=== PATIENT | female | born 1960 | race Asian ===

== ENCOUNTER 2018-06-06 12:07 | Inpatient (IN) ==
--- NOTE | 2018-06-06 13:12 | ED ---
HPI General Chief Complaint: Psychiatric Symptoms Stated Complaint: Psych Eval/NSBPD Time Seen by Provider: 06/06/18 13:11 Source: patient and other (Moscoso act report) Mode of arrival: ambulatory Limitations: no limitations History of Present Illness HPI Narrative: 58-year-old female presents to the emergency department under Moscoso act. According to the Moscoso act report apparently the patient was in an argument with her neighbor over medications and apparently at at a point had stated that she was going to walk to the beach and then jump off a bridge. On my examination the patient states that she does not know anything about jumping off of a bridge, except for in 2007 when she had a plan to attempt suicide by jumping off of a balcony. She denies making this comment. She denies suicidal or homicidal ideations. Reports history of suicidal attempt in 2007 with plan to jump off a balcony and was talked out of it by her friend. Reports history of psychiatric background with bipolar disorder, anxiety, depression. Denies illicit drug use, alcohol use, tobacco use. Denies auditory visual hallucinations. Patient is asking for something for pain. Is complaining of low back pain and says that she has low back pain at home also. Denies any other emergent medical complaints. Denies chest pain, shortness of breath, abdominal pain, change in urine or stool. Says she does feel anxious and is acting for something for her anxiety. Says her symptoms were aggravated today when her next her neighbor was trying to offer her a medication that she did not want to take. No known relieving factors. Symptoms are moderate to severe in severity. Onset sounds like it was today. Duration acute, but possibly could be chronic. History of diabetes mellitus and stroke, per the chart. Primary care provider is Dr. Baer. Allergies as listed on the chart. Has no other medical complaints. No other modifying factors or associated signs and symptoms. Related Data Home Medications Medication Instructions Recorded Confirmed oxcarbazepine 600 mg PO DAILY 06/06/18 06/06/18 quetiapine 120 mg PO HS 06/06/18 06/06/18 Previous Rx's Medication Instructions Recorded diphenhydramine HCl 50 mg PO HS 30 Days #30 cap 06/04/18 lisinopril 20 mg PO DAILY 30 Days #30 tab 06/04/18 Allergies Allergy/AdvReac Type Severity Reaction Status Date / Time divalproex sodium Allergy Rash Verified 05/24/18 16:06 [From Depakote] methylphenidate Allergy Rash Verified 05/24/18 16:06 [From Ritalin] risperidone [From Risperdal] Allergy Rash Verified 05/24/18 16:06 venlafaxine [From Effexor] Allergy Color Verified 06/06/18 12:31 Change of Teeth Review of Systems ROS: all other systems reviewed are negative PMFSH Medical History Medical History Diabetes (Acute) Bipolar disorder (Acute) Hypertension (Acute) Stroke (Acute) Surgical History Surgical History Status post wrist surgery (Acute) Social History Social History Substance History: No History of Abuse Second Hand Smoke Exposure: No Smoking Status: Never smoker How Often Do You Have a Drink Containing Alcohol: Never Recent Travel in [facility] within the Last 8 Weeks: No Recent Out of Country Travel within the Last 8 Weeks: No Immunization History Tetanus Immunization: Unsure Exam Narrative Exam Narrative: GENERAL: Well-nourished, well-developed female patient, in no acute distress SKIN: Warm and dry. HEAD: Atraumatic. Normocephalic. EYES: Pupils equal and round. ENT: Mucosa pink and moist. NECK: Supple. Trachea midline. CARDIOVASCULAR: Regular rate and rhythm. No murmur appreciated. RESPIRATORY: No accessory muscle use. Clear to auscultation. Breath sounds equal bilaterally. GASTROINTESTINAL: Abdomen soft, non-tender, nondistended. Hepatic and splenic margins not palpable. Bowel sounds are active 4 quadrants. MUSCULOSKELETAL: No obvious deformities. No clubbing. No cyanosis. No edema. NEUROLOGICAL: Awake and alert. Oriented 3. No obvious cranial nerve deficits. Motor grossly within normal limits. Normal speech. Moves all extremities. 5/5 strength to all extremities. PSYCHIATRIC: No delusional thought processes. No hallucinations. Course Initial Documented Vital Signs Temperature 98.5 F 06/06/18 12:34 Pulse Rate 103 H 06/06/18 12:34 Respiratory Rate 20 06/06/18 12:34 Blood Pressure 182/120 H 06/06/18 12:34 Pulse Oximetry 98 06/06/18 12:34 Last Documented Vital Signs Temperature 98.1 F 06/11/18 06:00 Pulse Rate 84 06/11/18 06:00 Respiratory Rate 16 06/11/18 06:00 Blood Pressure 129/63 06/11/18 06:00 Pulse Oximetry 96 06/11/18 06:00 Medical Decision Making MDM Narrative Medical decision making narrative: Patient presents under a Moscoso act. Physical examination and vital signs are essentially unremarkable. Patient has no medical complaints to report. Psych screen has been ordered. If the laboratory results are unremarkable, the patient will be medically cleared for psychiatric evaluation and disposition. Medical Screen Exam Complete: Yes Emergency Medical Condition: Yes Differential Diagnosis Differential Diagnosis: Adjustment disorder, mood disorder, suicidal threat, medical clearance for psychiatric evaluation Lab Data Result diagrams: 06/06/18 13:40 06/06/18 13:40 Lab Results 06/06/18 06/06/18 06/06/18 Range/Units 12:55 12:55 13:40 WBC 5.5 (4.0-11.0) th/mm3 RBC 4.48 (4.00-5.30) mil/mm3 Hgb 15.3 (11.6-15.3) gm/dL Hct 43.9 (35.0-46.0) % MCV 98.0 (80.0-100.0) fL MCH 34.1 H (27.0-34.0) pg MCHC 34.8 (32.0-36.0) % RDW 13.2 (11.6-17.2) % Plt Count 263 (150-450) th/mm3 MPV 6.9 L (7.0-11.0) fL Neut % (Auto) 74.1 H (16.0-70.0) % Lymph % (Auto) 17.4 (9.0-44.0) % Giles % (Auto) 6.6 (0.0-8.0) % Eos % (Auto) 0.9 (0.0-4.0) % Baso % (Auto) 1.0 (0.0-2.0) % Neut # (Auto) 4.0 (1.8-7.7) th/mm3 Lymph # (Auto) 0.9 L (1.0-4.8) th/mm3 Giles # (Auto) 0.4 (0.0-0.9) th/mm3 Eos # (Auto) 0.1 (0.0-0.4) th/mm3 Baso # (Auto) 0.1 (0.0-0.2) th/mm3 WBC Differential . Differential Comment Auto diff final Sodium (136-145) meq/L Potassium (3.5-5.1) meq/L Chloride (98-107) meq/L Carbon Dioxide (21.0-32.0) meq/L Anion Gap (5-15) meq/L BUN (7-18) mg/dL Creatinine (0.50-1.00) mg/dL Estimated GFR (>89) mL/min Random Glucose (74-106) mg/dL Hemoglobin A1c (4.3-6.0) % Calcium (8.5-10.1) mg/dL Magnesium (1.5-2.5) mg/dL Total Bilirubin (0.2-1.0) mg/dL AST (15-37) U/L ALT (10-53) U/L Alkaline Phosphatase (45-117) U/L Total Protein (6.4-8.2) g/dL Albumin (3.4-5.0) g/dL Triglycerides (42-150) mg/dL Cholesterol (120-200) mg/dL LDL Cholesterol, Calc (0-99) mg/dL HDL Cholesterol (40.0-60.0) mg/dL Cholesterol/HDL Ratio Ratio TSH (0.358-3.740) uIU/mL Urine Color Yellow (Yellw/Straw) Urine Clarity Clear (Clear) Urine pH 5.0 (5.0-8.5) Ur Specific [place] 1.020 (1.002-1.035) Urine Protein Negative (Neg-Trace) mg/dL Urine Glucose (UA) Negative (Negative) mg/dL Urine Ketones Negative (Negative) mg/dL Urine Occult Blood Negative (Negative) Urine Nitrate Negative (Negative) Urine Bilirubin Negative (Negative) Urine Urobilinogen Less than 2 (Less than 2) mg/dL Ur Leukocyte Esterase Trace H (Negative) Urine RBC Less than 1 (0-3) /hpf Urine WBC 3 (0-5) /hpf Urine Mucus Few H (Occasional) /lpf Micro UA Comment Culture not ind Ur Microscopic Review Not Reportable Urine Culture Comments Culture not ind Salicylates (2.8-20.0) mg/dL Urine Opiates Screen Neg (Neg) Acetaminophen (10.0-30.0) mcg/mL Ur Barbiturates Screen Neg (Neg) Ur Amphetamines Screen Neg (Neg) U Benzodiazepines Scrn Neg (Neg) Urine Cocaine Screen Neg (Neg) U Cannabinoids Screen Neg (Neg) Serum Alcohol (0-5) mg/dL 06/06/18 06/06/18 06/07/18 Range/Units 13:40 13:40 08:10 WBC (4.0-11.0) th/mm3 RBC (4.00-5.30) mil/mm3 Hgb (11.6-15.3) gm/dL Hct (35.0-46.0) % MCV (80.0-100.0) fL MCH (27.0-34.0) pg MCHC (32.0-36.0) % RDW (11.6-17.2) % Plt Count (150-450) th/mm3 MPV (7.0-11.0) fL Neut % (Auto) (16.0-70.0) % Lymph % (Auto) (9.0-44.0) % Giles % (Auto) (0.0-8.0) % Eos % (Auto) (0.0-4.0) % Baso % (Auto) (0.0-2.0) % Neut # (Auto) (1.8-7.7) th/mm3 Lymph # (Auto) (1.0-4.8) th/mm3 Giles # (Auto) (0.0-0.9) th/mm3 Eos # (Auto) (0.0-0.4) th/mm3 Baso # (Auto) (0.0-0.2) th/mm3 WBC Differential Differential Comment Sodium 138 (136-145) meq/L Potassium 4.2 (3.5-5.1) meq/L Chloride 107 (98-107) meq/L Carbon Dioxide 22.2 (21.0-32.0) meq/L Anion Gap 9 (5-15) meq/L BUN 16 (7-18) mg/dL Creatinine 0.67 (0.50-1.00) mg/dL Estimated GFR Greater than 89 (>89) mL/min Random Glucose 96 (74-106) mg/dL Hemoglobin A1c 5.4 (4.3-6.0) % Calcium 9.0 (8.5-10.1) mg/dL Magnesium 2.3 (1.5-2.5) mg/dL Total Bilirubin 0.3 (0.2-1.0) mg/dL AST 41 H (15-37) U/L ALT 56 H (10-53) U/L Alkaline Phosphatase 96 (45-117) U/L Total Protein 7.8 (6.4-8.2) g/dL Albumin 4.5 (3.4-5.0) g/dL Triglycerides (42-150) mg/dL Cholesterol (120-200) mg/dL LDL Cholesterol, Calc (0-99) mg/dL HDL Cholesterol (40.0-60.0) mg/dL Cholesterol/HDL Ratio Ratio TSH 0.511 (0.358-3.740) uIU/mL Urine Color (Yellw/Straw) Urine Clarity (Clear) Urine pH (5.0-8.5) Ur Specific [place] (1.002-1.035) Urine Protein (Neg-Trace) mg/dL Urine Glucose (UA) (Negative) mg/dL Urine Ketones (Negative) mg/dL Urine Occult Blood (Negative) Urine Nitrate (Negative) Urine Bilirubin (Negative) Urine Urobilinogen (Less than 2) mg/dL Ur Leukocyte Esterase (Negative) Urine RBC (0-3) /hpf Urine WBC (0-5) /hpf Urine Mucus (Occasional) /lpf Micro UA Comment Ur Microscopic Review Urine Culture Comments Salicylates Less than 1.7 L (2.8-20.0) mg/dL Urine Opiates Screen (Neg) Acetaminophen Less than 2.0 L (10.0-30.0) mcg/mL Ur Barbiturates Screen (Neg) Ur Amphetamines Screen (Neg) U Benzodiazepines Scrn (Neg) Urine Cocaine Screen (Neg) U Cannabinoids Screen (Neg) Serum Alcohol Less than 3 (0-5) mg/dL 06/07/18 Range/Units 08:10 WBC (4.0-11.0) th/mm3 RBC (4.00-5.30) mil/mm3 Hgb (11.6-15.3) gm/dL Hct (35.0-46.0) % MCV (80.0-100.0) fL MCH (27.0-34.0) pg MCHC (32.0-36.0) % RDW (11.6-17.2) % Plt Count (150-450) th/mm3 MPV (7.0-11.0) fL Neut % (Auto) (16.0-70.0) % Lymph % (Auto) (9.0-44.0) % Giles % (Auto) (0.0-8.0) % Eos % (Auto) (0.0-4.0) % Baso % (Auto) (0.0-2.0) % Neut # (Auto) (1.8-7.7) th/mm3 Lymph # (Auto) (1.0-4.8) th/mm3 Giles # (Auto) (0.0-0.9) th/mm3 Eos # (Auto) (0.0-0.4) th/mm3 Baso # (Auto) (0.0-0.2) th/mm3 WBC Differential Differential Comment Sodium (136-145) meq/L Potassium (3.5-5.1) meq/L Chloride (98-107) meq/L Carbon Dioxide (21.0-32.0) meq/L Anion Gap (5-15) meq/L BUN (7-18) mg/dL Creatinine (0.50-1.00) mg/dL Estimated GFR (>89) mL/min Random Glucose (74-106) mg/dL Hemoglobin A1c (4.3-6.0) % Calcium (8.5-10.1) mg/dL Magnesium (1.5-2.5) mg/dL Total Bilirubin (0.2-1.0) mg/dL AST (15-37) U/L ALT (10-53) U/L Alkaline Phosphatase (45-117) U/L Total Protein (6.4-8.2) g/dL Albumin (3.4-5.0) g/dL Triglycerides 126 (42-150) mg/dL Cholesterol 297 H (120-200) mg/dL LDL Cholesterol, Calc 202 H (0-99) mg/dL HDL Cholesterol 69.9 H (40.0-60.0) mg/dL Cholesterol/HDL Ratio 4.24 Ratio TSH (0.358-3.740) uIU/mL Urine Color (Yellw/Straw) Urine Clarity (Clear) Urine pH (5.0-8.5) Ur Specific [place] (1.002-1.035) Urine Protein (Neg-Trace) mg/dL Urine Glucose (UA) (Negative) mg/dL Urine Ketones (Negative) mg/dL Urine Occult Blood (Negative) Urine Nitrate (Negative) Urine Bilirubin (Negative) Urine Urobilinogen (Less than 2) mg/dL Ur Leukocyte Esterase (Negative) Urine RBC (0-3) /hpf Urine WBC (0-5) /hpf Urine Mucus (Occasional) /lpf Micro UA Comment Ur Microscopic Review Urine Culture Comments Salicylates (2.8-20.0) mg/dL Urine Opiates Screen (Neg) Acetaminophen (10.0-30.0) mcg/mL Ur Barbiturates Screen (Neg) Ur Amphetamines Screen (Neg) U Benzodiazepines Scrn (Neg) Urine Cocaine Screen (Neg) U Cannabinoids Screen (Neg) Serum Alcohol (0-5) mg/dL Discharge Plan Discharge Disposition Patient Disposition: Sign Out(ED Internal Use Only) Discharge Condition Condition: Stable Discharge Order Discharge Orders: ED Use Only Admit Order (Routine); Ordered 06/06/18 Ordered By: Darell Ingram Discharge Details Diagnosis: Encounter for psychiatric assessment Physicians Team ED Provider: Massimo Navarro ED Midlevel Provider: Aracely Albarran Primary Care Provider: UNKNOWN, Attending Provider: Luis Siddiqui Other Providers: Utilizer,[facility] ; Gary Tobin Status ED Status: Left Department Discharge Information Discharge Date/Time: 06/06/18 22:44
[2018-06-06 13:27] LABS: Bilirubin,Urine Negative (Negative); Clarity,Urine Clear (Clear); Color,Urine Yellow (Yellw/Straw); Glucose,Urine (UA) Negative (Negative); Leukocyte Esterase,Urine Trace (Negative); Mucus,Urine Few /lpf (Occasional); Nitrite,Urine Negative (Negative)
[2018-06-06 13:31] LABS: Amphetamine Screen,Urine Neg (Neg); Barbiturate Screen,Urine Neg (Neg); Cannabinoid Screen,Urine Neg (Neg); Cocaine Screen,Urine Neg (Neg)
[2018-06-06 13:37] LABS: Opiate Screen,Urine Neg (Neg)
[2018-06-06 14:00] LABS: Baso # (Auto) 0.1 th/mm3 (0.0-0.2); Eos # (Auto) 0.1 th/mm3 (0.0-0.4); Eos % (Auto) 0.9 % (0.0-4.0); Hematocrit 43.9 % (35.0-46.0); Hemoglobin 15.3 gm/dL (11.6-15.3); Lymph # (Auto) 0.9 th/mm3 (1.0-4.8); Lymph % (Auto) 17.4 % (9.0-44.0); Mean Corpuscular HGB Conc 34.8 % (32.0-36.0); Mean Corpuscular Hemoglobin 34.1 pg (27.0-34.0); Mean Platelet Volume 6.9 fL (7.0-11.0); Mono # (Auto) 0.4 th/mm3 (0.0-0.9); Mono % (Auto) 6.6 % (0.0-8.0); Neut % (Auto) 74.1 % (16.0-70.0); Platelet Count 263 th/mm3 (150-450); Red Blood Count 4.48 mil/mm3 (4.00-5.30); Red Cell Distribution Width 13.2 % (11.6-17.2); White Blood Count 5.5 th/mm3 (4.0-11.0)
[2018-06-06 14:20] LABS: Alanine Aminotransferase 56 U/L (10-53); Albumin 4.5 g/dL (3.4-5.0); Anion Gap 9 meq/L (5-15); Aspartate Aminotransferase 41 U/L (15-37); Blood Urea Nitrogen 16 mg/dL (7-18); Carbon Dioxide 22.2 meq/L (21.0-32.0); Chloride 107 meq/L (98-107); Glomerular Filtration Rate Greater Than 89 mL/min (>89); Glucose,Random 96 mg/dL (74-106); Magnesium 2.3 mg/dL (1.5-2.5); Potassium 4.2 meq/L (3.5-5.1); Sodium 138 meq/L (136-145)
[2018-06-06 14:31] LABS: Alkaline Phosphatase 96 U/L (45-117); Thyroid Stimulating Hormone 0.511 uIU/mL (0.358-3.740); Total Protein 7.8 g/dL (6.4-8.2)
[2018-06-06] MEDS ORDERED: Acetaminophen 325 MG Tablet PO ONE (16:47)
[2018-06-06] MEDS ORDERED: LORazepam 1 MG Tablet PO PRN (22:09)
[2018-06-06] MEDS ORDERED: Aluminum/Magnesium/Simethacone Susp 30 ML UDC PO PRN (22:09)
[2018-06-06] MEDS ORDERED: QUEtiapine 100 MG Tablet PO ONE (22:14)
[2018-06-07] MEDS: Lisinopril 20 MG Tablet PO SCH (09:16)
[2018-06-07 10:02] LABS: Chol/HDL Ratio 4.24 Ratio; HDL Cholesterol 69.9 mg/dL (40.0-60.0)
--- NOTE | 2018-06-07 12:13 | P.HPPSY ---
Provisional Diagnosis Admission Date: June 06, 2018 21:54 [place] I.: Bipolar disorder Competence Certification of Person's Competence To Provide Express and Informed Consent I have personally examined Valeria Rico, a person being served at [facility] on, June 07, 2018 1148. Express and informed consent means consent voluntarily given in writing, by a competent person, after sufficient explanation and disclosure of the subject matter involved to enable the person to make a knowing and willful decision without any element of force, fraud, deceit, duress, or other form of constraint or coercion. This person is 18 years of age or older, is not now known to be incompetent to consent to treatment with a guardian advocate, and does not have a health care surrogate or proxy currently making medical treatment decisions. I have found this person to be one of the following: [xxx] Competent to provide express and informed consent, as defined above, for voluntary admission to this facility and is competent to provide express and informed consent for treatment. He/she has the consistent capacity to make well reasoned, willful, and knowing decisions concerning his or her medical or mental health treatment. The person fully and consistently understands the purpose of the admission for examination/placement and is fully capable of personally exercising all rights assured [place] [] Incompetent to provide express and informed consent to voluntary admission, and this is incompetent to provide express and informed consent to treatment. The person must be transferred to involuntary status and a petition for a guardian advocate filed with the Circuit Court. [] Refusing to provide express and informed consent to voluntary admission but is competent to provide express and informed consent for treatment. The person must be discharged or transferred to involuntary status. Form shall be completed within 24 hours of a person's arrival at the receiving facility and filed in the clinical record of each person: 1. Admitted on a voluntary basis 2. Permitted to provide express and informed consent to his/her own treatment 3. Allowed to transfer from involuntary to voluntary status 4. Prior to permitting a person to consent to his or her own treatment after having been previously found incompetent to consent to treatment. 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 As per chart, patient denied having any perceptual disturbances, denied having mentioned any suicidal statements in the ED. Patient was found ambulating on the unit, calm and cooperative, and not noted to have pressured speech, noted to have slight disorganization but not grossly disorganized, some tangentiality but able to maintain focus on conversation. Patient was having difficulty giving a linear account of events after her discharge and events that led to her readmission. She mentions having been upset recently because today is the anniversary of her stillborn Evon as well as having found out that her dog had 2 days ago after her sister had spoken to her over the phone. She states that she had gotten into an argument with her neighbor/close friend (Esther) who upon last discharge had agreed to assist patient with medication and management. She states that her friend Esther was trying to have her take medications 3 times a day which as per directions from her last discharge is accurate. She states that she was refusing to take any more medications. She also mentions that after her last discharge she was not able to fill her prescriptions and therefore did not continue to take her psychiatric medications after discharge. Patient states that Esther ()) had called the police because she thought she was manic. Patient denies having had any manic-like behavior after her discharge which she states and describes that when she has been manic in the past she "spends a lot of money", although patient made comment that she was planning to give her landscape worker thousand dollars because he had been very helpful with her dog in the past. It is important to note that patient happens discharge did not continue treatment as stated above that she had not filled her prescriptions. Patient at this time denies any perceptual services denies any SI or HI. Patient also noted to have poor insight into importance of adherence to medications at this time and discussion of having patient referred to an assisted living facility to provide more structure and to maintain mood stability was reviewed which she agreed. Family psychiatric history: mother and grandmother with bipolar disorder, denies any suicides in the family Past psychiatric history: previous psychiatric diagnosis of bipolar disorder, multiple psychiatric admissions (recently discharged from [facility] several days ago), one prior suicide attempt in 2008, has outpatient mental health provider Mr. Cano. Substance use history: ETOH occasionally, usually one drink. Past medical history: CVA in 2008 with residual RT sided weakness Allergies: depakote, methylphenidate, risperidone Social history: , lives alone, unemployed on disability benefits, no legal history Collateral contact: Felicia Toscano (sister); Esther Persaud (close friend) - Inpatient Certification I certify that the inpatient services were ordered in accordance with Medicare regulations governing the order. This includes certification that hospital inpatient services are reasonable and necessary and in the case of services not specified as inpatient-only under 42 CFR 419.22(n), that they are appropriately provided as inpatient services in accordance to with the 2-midnight benchmark under 43 CFR 412.3(e) I certify that inpatient psychiatric hospital services are medically necessary. Evaluation and treatment and/or diagnostic testing are expected to improve the patient's condition. The patient needs on a daily basis, active treatment furnished directly by or requiring the supervision of inpatient psychiatric facility personnel. Estimated Total Length of Stay (Days): 7 Plans for Post Hospital Care: Not yet determined Review of Systems All other systems reviewed negative except as stated in HPI PMFSH - History History Provided By: Patient, Medical Record - Medical History Medical History: Medical History (Last Reviewed 06/06/18 @ 13:57 by RUDOLPH Ware) Diabetes Bipolar disorder Hypertension Stroke - Surgical History Surgical History: Surgical History (Last Reviewed 06/06/18 @ 12:36 by Yelitza Xiao) Status post wrist surgery - Tobacco History Second Hand Smoke Exposure: No Tobacco Use In Past 30 Days: No Smoking Status: Never smoker - Alcohol History How Often Do You Have a Drink Containing Alcohol: Never - Substance Use History Substance History: No History of Abuse - Travel History Recent Travel in the [place] Within the Last 8 Weeks: No Recent Travel Out of the Country Within the Last 8 Weeks: No - Immunization History Tetanus Immunization: Unsure Hx Influenza Vaccine This Season: Yes Quality Measures - Psychiatric History Psychological trauma history: See HPI Violence risk to others in the last 6 months: Low Violence risk to self in the last 6 months: Elevated due to the alleged report of patient making suicidal statements - Substance Abuse History Drug or alcohol use in the past 12 months: See HPI - Patient Strengths Patient's strengths (minimum of 2): Verbal and communicative Medications and Allergies Active Medications: Active Medications Acetaminophen (Tylenol) 650 mg PO Q4H PRN PRN Reason: Pain 1-5 or Temp >101F Al Hydrox/Mg Hydrox/Simethicone (Mag-Al Plus Susp Liq) 30 ml PO Q6H PRN PRN Reason: DYSPEPSIA Al Hydroxide/Mg Hydroxide (Milk Of Magnesia Liq) 30 ml PO DAILY PRN PRN Reason: CONSTIPATION Diphenhydramine HCl (Benadryl) 50 mg PO HS PRN PRN Reason: INSOMNIA Diphenhydramine HCl (Benadryl Inj) 50 mg IM HS PRN PRN Reason: INSOMNIA Lisinopril (Prinivil) 20 mg PO DAILY [facility] Last Admin: 06/07/18 09:16 Dose: 20 mg Lorazepam (Ativan Inj) 1 mg IM Q6H PRN PRN Reason: MODERATE TO SEVERE ANXIETY Lorazepam (Ativan) 1 mg PO Q6H PRN PRN Reason: MODERATE TO SEVERE ANXIETY Nicotine (Habitrol 21 Mg Patch.24 Hr) 1 patch T-DERMAL DAILY [facility] Last Admin: 06/07/18 11:43 Dose: Not Given Oxcarbazepine (Trileptal) 600 mg PO BID [facility] Quetiapine Fumarate (Seroquel) 200 mg PO DAILY@1500 CECE Quetiapine Fumarate (Seroquel) 250 mg PO BID [facility] Allergies Allergy/AdvReac Type Severity Reaction Status Date / Time divalproex sodium Allergy Rash Verified 05/24/18 16:06 [From Depakote] methylphenidate Allergy Rash Verified 05/24/18 16:06 [From Ritalin] risperidone [From Risperdal] Allergy Rash Verified 05/24/18 16:06 venlafaxine [From Effexor] Allergy Color Verified 06/06/18 12:31 Change of Teeth Home Medications Medication Instructions Recorded Confirmed Type oxcarbazepine 600 mg PO DAILY 06/06/18 06/06/18 History quetiapine 120 mg PO HS 06/06/18 06/06/18 History Results - Labs CBC & Chem 7: 06/06/18 13:40 06/06/18 13:40 Labs: Laboratory Results - last 24 hr 06/06/18 06/06/18 06/06/18 12:55 12:55 13:40 WBC 5.5 RBC 4.48 Hgb 15.3 Hct 43.9 MCV 98.0 MCH 34.1 H MCHC 34.8 RDW 13.2 Plt Count 263 MPV 6.9 L Neut % (Auto) 74.1 H Lymph % (Auto) 17.4 [place] % (Auto) 6.6 Eos % (Auto) 0.9 Baso % (Auto) 1.0 Neut # (Auto) 4.0 Lymph # (Auto) 0.9 L [place] # (Auto) 0.4 Eos # (Auto) 0.1 Baso # (Auto) 0.1 WBC Differential . Differential Comment Auto diff final Sodium Potassium Chloride Carbon Dioxide Anion Gap BUN Creatinine Estimated GFR Random Glucose Calcium Magnesium Total Bilirubin AST ALT Alkaline Phosphatase Total Protein Albumin Triglycerides Cholesterol LDL Cholesterol, Calc HDL Cholesterol Cholesterol/HDL Ratio TSH Urine Color Yellow Urine Clarity Clear Urine pH 5.0 Ur Specific [place] 1.020 Urine Protein Negative Urine Glucose (UA) Negative Urine Ketones Negative Urine Occult Blood Negative Urine Nitrate Negative Urine Bilirubin Negative Urine Urobilinogen Less than 2 Ur Leukocyte Esterase Trace H Urine RBC Less than 1 Urine WBC 3 Urine Mucus Few H Micro UA Comment Culture not ind Ur Microscopic Review Not Reportable Urine Culture Comments Culture not ind Salicylates Urine Opiates Screen Neg Acetaminophen Ur Barbiturates Screen Neg Ur Amphetamines Screen Neg U Benzodiazepines Scrn Neg Urine Cocaine Screen Neg U Cannabinoids Screen Neg Serum Alcohol 06/06/18 06/06/18 06/07/18 13:40 13:40 08:10 WBC RBC Hgb Hct MCV MCH MCHC RDW Plt Count MPV Neut % (Auto) Lymph % (Auto) [place] % (Auto) Eos % (Auto) Baso % (Auto) Neut # (Auto) Lymph # (Auto) [place] # (Auto) Eos # (Auto) Baso # (Auto) WBC Differential Differential Comment Sodium 138 Potassium 4.2 Chloride 107 Carbon Dioxide 22.2 Anion Gap 9 BUN 16 Creatinine 0.67 Estimated GFR Greater than 89 Random Glucose 96 Calcium 9.0 Magnesium 2.3 Total Bilirubin 0.3 AST 41 H ALT 56 H Alkaline Phosphatase 96 Total Protein 7.8 Albumin 4.5 Triglycerides 126 Cholesterol 297 H LDL Cholesterol, Calc 202 H HDL Cholesterol 69.9 H Cholesterol/HDL Ratio 4.24 TSH 0.511 Urine Color Urine Clarity Urine pH Ur Specific [place] Urine Protein Urine Glucose (UA) Urine Ketones Urine Occult Blood Urine Nitrate Urine Bilirubin Urine Urobilinogen Ur Leukocyte Esterase Urine RBC Urine WBC Urine Mucus Micro UA Comment Ur Microscopic Review Urine Culture Comments Salicylates Less than 1.7 L Urine Opiates Screen Acetaminophen Less than 2.0 L Ur Barbiturates Screen Ur Amphetamines Screen U Benzodiazepines Scrn Urine Cocaine Screen U Cannabinoids Screen Serum Alcohol Less than 3 Exam Vital signs: Vital Signs 06/06/18 12:34 06/06/18 18:23 06/06/18 22:27 Temperature 98.5 F 98.2 F Pulse Rate 103 H 80 100 H Respiratory Rate 20 18 Blood Pressure 182/120 H 152/86 H 165/120 H Pulse Oximetry 98 98 06/06/18 22:47 06/07/18 05:41 Temperature 98.0 F 96.9 F L Pulse Rate 84 71 Respiratory Rate 18 16 Blood Pressure 152/86 H 131/89 Pulse Oximetry 99 99 Intake & Output 06/06/18 06/07/18 06/07/18 18:59 06:59 18:59 Weight 62.142 kg 61.9 kg Other: Weight On Admission 61.9 kg Narrative: Patient not noted to be in acute distress, no signs of tremor or EPS, no psychomotor agitation or retardation. - Constitutional no acute distress, cooperative Mental Status Examination Appearance: Appropriate Consciousness: Alert Orientation: Person, Place, Date/Time Motor Activity: Abnormal gait Speech: Unremarkable Language: Adequate Fund of Knowledge: Inadequate Attention and Concentration: Adequate Memory: Impaired Mood: Other ("Very good") Affect: Appropriate Thought Process & Associations: Disorganized (some) Thought Content: Bizarre thinking Hallucination Type: None Delusion Type: None Suicidal Ideation: No Suicidal Plan: No Suicidal Intention: No Homicidal Ideation: No Homicidal Plan: No Homicidal Intention: No Insight: Fair Judgment: Impulsive Assessment and Plan - Assessment (1) Bipolar disorder Code(s): F31.9 - Bipolar disorder, unspecified Status: Acute - Plan Plan: Estimated LOS: [] days Patient is a 58-year-old woman who carries a diagnosis of bipolar disorder, recently discharged from [facility] ago who upon discharge did not fill her prescriptions and had not been taking her medications after leaving the hospital. Patient had been attempted to be provided with medications through close friend who upon patient resisting to adhere to treatment and argument which led patient to be put under [place] act with the alleged patient stating wanting to jump off a bridge which she denies at this time. Patient known to field underwriter from last admission, noted to not be as manic as previous admission but since patient had nonadherence to treatment is noted to have some disorganization, and impulsivity which patient will require to be restarted back on her medications to reestablish stabilization as patient has high risk for acute further decompensation at this time. Patient agrees to referral to assisted living facilities as discussed with patient prior to her last discharge if patient was not able to adhere to treatment and follow-up after discharge. Patient will resume quetiapine 250mg a.m./200 mg p.m./250 mg at bedtime, Trileptal 600 mg p.o. twice daily. Will order EKG to monitor Qtc interval; labs reviewed. Continue to monitor mood and behavior. Social work intervention for psychosocial assessment. Patient to be admitted under voluntary admission, has capacity to consent to treatment. Discharge planning in progress. Justification for Continued Inpatient Stay: At risk of further decompensation at lower level care.
[2018-06-07] MEDS: OXcarbazepine 600 MG Tablet PO SCH ×2 (14:51→20:37)
[2018-06-07] MEDS: QUEtiapine 100 MG Tablet PO SCH ×2 (15:16→20:38)
[2018-06-07 16:20] LABS: Hemoglobin A1c 5.4 % (4.3-6.0)
[2018-06-07] MEDS: Acetaminophen 325 MG Tablet PO PRN (20:45)
[2018-06-08] MEDS: QUEtiapine 100 MG Tablet PO SCH ×2 (09:19→20:38)
[2018-06-08] MEDS: Lisinopril 20 MG Tablet PO SCH (09:19)
[2018-06-08] MEDS: OXcarbazepine 600 MG Tablet PO SCH ×2 (09:20→20:38)
--- NOTE | 2018-06-08 14:46 | ECG ---
Date Performed: 06/07/2018 Time Performed: 11:57:43 PTAGE: 58 years EKG: Sinus rhythm LOW QRS VOLTAGE IN PRECORDIAL LEADS NONSPECIFIC T-WAVE ABNORMALITY BORDERLINE ECG Since the PREVIOUS TRACING , no significant change noted PREVIOUS TRACIN05/26/2018 18.13 DOCTOR: Martha Ludwig Interpretating Date/Time 06/08/2018 14:39:40
--- NOTE | 2018-06-08 15:09 | P.PNPSY ---
Subjective Remarks: Patient seen for follow-up, chart reviewed. Discussion with nursing staff reported that patient no behavioral changes, has been attending groups and cooperative with staff and medications. Patient was found having lunch noted B , cooperative. Patient states she is feeling fine, compliant with medications denying any adverse drug reactions, adequate appetite and bowel movement. Patient denies any racing thoughts. Patient continued to be perseverative and focused on her recent loss of her pet stating that she was advised to had 2 days ago although patient had longer than 2 days ago. Patient states her mood is "pretty good", continues to have limited insight but agreeable to referral to an assisted living facility as she is aware that she will require further support to maintain stability. Review of Systems All other systems reviewed negative except as stated in HPI Mental Status Examination Appearance: Appropriate Consciousness: Alert Orientation: Person, Place, Date/Time Motor Activity: Abnormal gait Speech: Unremarkable Language: Adequate Fund of Knowledge: Inadequate Attention and Concentration: Adequate Memory: Impaired Mood: Other ("Very good") Affect: Appropriate Thought Process & Associations: Disorganized (At times) Thought Content: Bizarre thinking Hallucination Type: None Delusion Type: None Suicidal Ideation: No Suicidal Plan: No Suicidal Intention: No Homicidal Ideation: No Homicidal Plan: No Homicidal Intention: No Insight: Fair Judgment: Impulsive Assessment and Plan - Assessment (1) Bipolar disorder Code(s): F31.9 - Bipolar disorder, unspecified Status: Acute - Plan Plan: Patient at this time continues to be compliant with medications, slight disorganization at times, but noted to maintain stable mood. We will continue current treatment. Treatment team will continue to locate an assisted living facility appropriate for patient as patient will require structure and support after discharge to maintain stability. EKG reviewed, QTc is 423ms. Continue monitor mood and behavior. Discharge planning in progress. Justification for Continued Inpatient Stay: At risk of further decompensation at lower level care.
[2018-06-09] MEDS: Lisinopril 20 MG Tablet PO SCH ×2 (08:50→21:25)
[2018-06-09] MEDS: QUEtiapine 100 MG Tablet PO SCH ×2 (08:50→21:25)
[2018-06-09] MEDS: OXcarbazepine 600 MG Tablet PO SCH ×2 (08:50→21:25)
[2018-06-09] MEDS ORDERED: amLODIPine 5 MG Tablet PO SCH (10:15)
--- NOTE | 2018-06-09 14:32 | P.PNPSY ---
Subjective Remarks: Reviewed electronic medical records and discussed case with staff. Follow-up was conducted in the patient's room with OLAMIDE Tim present. Her nurse reports that she has been "doing good". Patient was found in bed awake. She states that she feels fine. She says that she slept very good and that her appetite has been good. She did complain of some dizziness from her medication but states that it cleared up. She understands the discharge planning is in process to place her in assisted living facility. Mental Status Examination Appearance: Appropriate Consciousness: Alert Orientation: Person, Place, Date/Time Motor Activity: Abnormal gait Speech: Unremarkable Language: Adequate Fund of Knowledge: Inadequate Attention and Concentration: Adequate Memory: Impaired Mood: Other ("Very good") Affect: Appropriate Thought Process & Associations: Disorganized (At times) Thought Content: Bizarre thinking Hallucination Type: None Delusion Type: None Suicidal Ideation: No Suicidal Plan: No Suicidal Intention: No Homicidal Ideation: No Homicidal Plan: No Homicidal Intention: No Insight: Fair Judgment: Impulsive Assessment and Plan - Assessment (1) Bipolar disorder Code(s): F31.9 - Bipolar disorder, unspecified Status: Acute - Plan Plan: Patient will be reevaluated by the attending psychiatrist. Continue with current treatment plan. Justification for Continued Inpatient Stay: Moving this patient to a less restrictive environment would likely result in decompensation.
--- NOTE | 2018-06-09 15:38 | P.CONIM ---
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 Patient was recently admitted and discharged from psychiatric unit about few days back, patient states she does state home one day and got [place] acted. She is now admitted to inpatient psychiatry unit for further evaluation. Consulted for assistance with BP management. Patient seen and examined today. States that he has been taking lisinopril 20 mg and she was in her 20s and has been on it. States she has a stroke in 2007. As per patient, both parents had a stroke in their 50s, that her siblings are monitoring their health as it is their risk factor. Patient was very pleasant and conversant. States she is very happy now that she is going into an assisted living [facility] when she gets discharged. She is agreeable with changes in her BP medications. Denies pain and discomfort. Denies SOB/ dyspnea. Denies chest pain, palpitations, headaches, dizziness. Denies fevers, chills, n/v/d. Denies hematuria, dysuria. Review of Systems Review of Systems: all other systems reviewed are negative [facility] Medical History Medical History Diabetes (Acute) Bipolar disorder (Acute) Hypertension (Acute) Stroke (Acute) Surgical History Surgical History Status post wrist surgery (Acute) Social History Social History Substance History: No History of Abuse Second Hand Smoke Exposure: No Smoking Status: Never smoker How Often Do You Have a Drink Containing Alcohol: Never Recent Travel in [place] within the Last 8 Weeks: No Recent Out of Country Travel within the Last 8 Weeks: No Immunization History Tetanus Immunization: Unsure Hx Influenza Vaccine This Season: Yes Medications and Allergies Allergies Allergy/AdvReac Type Severity Reaction Status Date / Time divalproex sodium Allergy Rash Verified 05/24/18 16:06 [From Depakote] methylphenidate Allergy Rash Verified 05/24/18 16:06 [From Ritalin] risperidone [From Risperdal] Allergy Rash Verified 05/24/18 16:06 venlafaxine [From Effexor] Allergy Color Verified 06/06/18 12:31 Change of Teeth Home Medications Medication Instructions Recorded Confirmed Type oxcarbazepine 600 mg PO DAILY 06/06/18 06/06/18 History quetiapine 120 mg PO HS 06/06/18 06/06/18 History Active Medications: Active Medications Acetaminophen (Tylenol) 650 mg PO Q4H PRN PRN Reason: Pain 1-5 or Temp >101F Last Admin: 06/07/18 20:45 Dose: 650 mg Al Hydrox/Mg Hydrox/Simethicone (Mag-Al Plus Susp Liq) 30 ml PO Q6H PRN PRN Reason: DYSPEPSIA Al Hydroxide/Mg Hydroxide (Milk Of Magnesia Liq) 30 ml PO DAILY PRN PRN Reason: CONSTIPATION Amlodipine Besylate (Norvasc) 5 mg PO DAILY [facility] Last Admin: 06/09/18 13:27 Dose: 5 mg Diphenhydramine HCl (Benadryl) 50 mg PO HS PRN PRN Reason: INSOMNIA Last Admin: 06/08/18 20:38 Dose: 50 mg Diphenhydramine HCl (Benadryl Inj) 50 mg IM HS PRN PRN Reason: INSOMNIA Lisinopril (Prinivil) 20 mg PO DAILY [facility] Last Admin: 06/09/18 08:50 Dose: 20 mg Lorazepam (Ativan Inj) 1 mg IM Q6H PRN PRN Reason: MODERATE TO SEVERE ANXIETY Lorazepam (Ativan) 1 mg PO Q6H PRN PRN Reason: MODERATE TO SEVERE ANXIETY Nicotine (Habitrol 21 Mg Patch.24 Hr) 1 patch T-DERMAL DAILY [facility] Last Admin: 06/09/18 08:50 Dose: Not Given Oxcarbazepine (Trileptal) 600 mg PO BID [facility] Last Admin: 06/09/18 08:50 Dose: 600 mg Quetiapine Fumarate (Seroquel) 200 mg PO DAILY@1500 [facility] Last Admin: 02/15/19 19:26 Dose: 200 mg Quetiapine Fumarate (Seroquel) 250 mg PO BID [facility] Last Admin: 06/09/18 08:50 Dose: 250 mg Physical Exam Vital signs: Vital Signs 06/08/18 16:00 06/09/18 06:00 06/09/18 08:26 Temperature 91.4 F L 97.7 F Pulse Rate 93 H 82 92 H Respiratory Rate 16 17 Blood Pressure 147/91 H 192/108 H 176/116 H Pulse Oximetry 100 98 06/09/18 10:14 06/09/18 12:17 Temperature Pulse Rate 75 78 Respiratory Rate Blood Pressure 130/80 120/72 Pulse Oximetry Intake & Output 06/08/18 06/09/18 06/09/18 18:59 06:59 18:59 Intake Total 840 / 840 600 / 600 Balance 840 / 840 600 / 600 Intake: Oral 840 / 840 600 / 600 Narrative: GENERAL: This is a pleasant female, well-developed patient, in no apparent distress. SKIN: Warm and dry. Bilateral knee keloid scars. HEENT: Normocephalic. Pupils equal round and reactive. Nose without bleeding. Airway patent. NECK: Trachea midline. CARDIOVASCULAR: Regular rate and rhythm without murmurs, gallops, or rubs. RESPIRATORY: Clear to auscultation. Breath sounds equal bilaterally. No wheezes , rales, or rhonchi. GASTROINTESTINAL: Abdomen soft, non-tender, nondistended. Bowel Sounds normoactive x4. MUSCULOSKELETAL: Extremities without clubbing, cyanosis, or edema. NEUROLOGICAL: Awake and alert. Slightly slurred speech. Pleasant. RUE limited ROM, + contractures. Results Labs CBC & Chem 7: 06/06/18 13:40 06/06/18 13:40 Assessment and Plan (1) Bipolar disorder: Code(s): F31.9 - Bipolar disorder, unspecified Status: Acute Plan Patient is a 58-year-old Iraqi female of Syrian descent with past medical history of HTN, CVA in 2007 with right-sided weakness, states she has a history of diabetes but has managed to lost weight and has been off medication, bipolar disorder who initially came into the hospital under [place] act by her neighbor Esther due to her recent argument with medications. Patient was recently admitted and discharged from psychiatric unit about few days back, patient states she does state home one day and got [place] acted. She is now admitted to inpatient psychiatry unit for further evaluation. Consulted for assistance with BP management. Bipolar disorder -Managed by psychiatry team HTN, uncontrolled -Has been on lisinopril since she was in her 20s. Agreeable to increase the dose of lisinopril hold off on trying new medication. -States she wants lisinopril with increased dose to be split in the morning and in the evening. Agreeable to lisinopril 20 mg twice daily -Patient was given Norvasc today and clonidine for elevated BP. She reports that she was in the 170s-190s prior to medications -Monitor BP trend Previous CVA 2007 HLD -Not on any ASA or anti platelet, will start pt on ASA -Lipid profile shows hyperlipidemia, will start atorvastatin 40mg History of diabetes -Hemoglobin A1c 5.4 -Follow-up in the outpatient, dietary changes and lifestyle to continue DVT Prop ambulatory Full Code The exam, history, and the medical decision-making described in the above note were completed with the assistance of the mid-level provider. I reviewed and agree with the findings presented. I attest that I had a [id number] encounter with the patient on the same day, and personally performed and documented my assessment and findings in the medical record. Discussed Condition With: patient, nursing, Dr. Hayden _ (1) Bipolar disorder Qualifiers: Active/Remission status: Current bipolar episode type: Current episode severity: Most recent bipolar episode type: Psychotic features:
[2018-06-10] MEDS: Lisinopril 20 MG Tablet PO SCH ×2 (08:46→21:11)
[2018-06-10] MEDS: OXcarbazepine 600 MG Tablet PO SCH ×2 (08:46→21:11)
[2018-06-10] MEDS: QUEtiapine 100 MG Tablet PO SCH ×2 (08:46→21:11)
--- NOTE | 2018-06-10 10:31 | P.PNPSY ---
Subjective Remarks: Reviewed electronic record and discussed with nursing staff. Rounded with OLAMIDE Porter. Patient in common area. She is medication compliant. Nursing reports that she can a little disorganized. She states that she is going to be discharged to [facility] ([facility] in [facility]. She states that her 87 year old mother is in a facility next door to this [facility] so she will get to visit with her mother. She is sleeping and eating well. She c/o of a sore throat but is not interested in lozenges. Review of Systems All other systems reviewed negative except as stated in HPI Mental Status Examination Appearance: Appropriate Consciousness: Alert Orientation: Person, Place, Date/Time Motor Activity: Abnormal gait Speech: Unremarkable Language: Adequate Fund of Knowledge: Inadequate Attention and Concentration: Adequate Memory: Impaired Mood: Other ("Very good") Affect: Appropriate Thought Process & Associations: Disorganized (At times) Thought Content: Bizarre thinking Hallucination Type: None Delusion Type: None Suicidal Ideation: No Suicidal Plan: No Suicidal Intention: No Homicidal Ideation: No Homicidal Plan: No Homicidal Intention: No Insight: Fair Judgment: Impulsive Assessment and Plan - Assessment (1) Bipolar disorder Code(s): F31.9 - Bipolar disorder, unspecified Status: Acute - Plan Plan: Patient will be reevaluated by the attending psychiatrist. Continue with current treatment plan. Justification for Continued Inpatient Stay: Moving patient to a less restrictive environment may result in her decompensation.
--- NOTE | 2018-06-10 15:03 | P.PNIM ---
Subjective Interval history: Follow-up visit history of CVA, HTN. Patient seen and examined today. Reports she is doing well. Denies pain and discomfort. Denies SOB/ dyspnea. Denies chest pain, palpitations, headaches, dizziness. Denies fevers, chills, n/v/d. Denies hematuria, dysuria. Physical Exam Vital signs: Vital Signs 06/09/18 16:44 06/10/18 05:39 Temperature 89.5 F L 97.7 F Pulse Rate 99 H 79 Respiratory Rate 18 18 Blood Pressure 142/87 H 149/77 H Pulse Oximetry 99 99 Intake & Output 06/09/18 06/10/18 06/10/18 18:59 06:59 18:59 Intake Total 960 / 960 240 / 240 Balance 960 / 960 240 / 240 Intake: Oral 960 / 960 240 / 240 Narrative: GENERAL: This is a pleasant female, well-developed patient, in no apparent distress. SKIN: Warm and dry. Bilateral knee keloid scars. HEENT: Normocephalic. Pupils equal round and reactive. Nose without bleeding. Airway patent. NECK: Trachea midline. CARDIOVASCULAR: Regular rate and rhythm without murmurs, gallops, or rubs. RESPIRATORY: Clear to auscultation. Breath sounds equal bilaterally. No wheezes , rales, or rhonchi. GASTROINTESTINAL: Abdomen soft, non-tender, nondistended. Bowel Sounds normoactive x4. MUSCULOSKELETAL: Extremities without clubbing, cyanosis, or edema. NEUROLOGICAL: Awake and alert. Slightly slurred speech. Pleasant. RUE limited ROM, + contractures. Results Labs CBC & Chem 7: 06/06/18 13:40 06/06/18 13:40 Assessment and Plan (1) Bipolar disorder: Code(s): F31.9 - Bipolar disorder, unspecified Status: Acute Plan Patient is a 58-year-old [place] female of [place] descent with past medical history of HTN, CVA in 2007 with right-sided weakness, states she has a history of diabetes but has managed to lost weight and has been off medication, bipolar disorder who initially came into the hospital under [place] act by her neighbor Esther due to her recent argument with medications. Patient was recently admitted and discharged from psychiatric unit about few days back, patient states she does state home one day and got [place] acted. She is now admitted to inpatient psychiatry unit for further evaluation. Consulted for assistance with BP management. Bipolar disorder -Managed by psychiatry team HTN, uncontrolled -Lisinopril 20 mg twice daily -Clonidine PRN -Improved Previous CVA 2007 HLD -Continue aspirin, atorvastatin History of diabetes -Hemoglobin A1c 5.4 -Follow-up in the outpatient, dietary changes and lifestyle to continue DVT Prop ambulatory Full Code Stable from Hospitalist standpoint. We will sign off. Reconsult as needed. Thank you. Discussed Condition With: Patient, nursing, Dr. Hayden Discharge Planning: DC disposition by primary team Progress Note: Quality VTE Deep Vein Thrombosis/Pulmonary Embolism Present on Admission: No _ (1) Bipolar disorder Qualifiers: Active/Remission status: Current bipolar episode type: Current episode severity: Most recent bipolar episode type: Psychotic features:
[2018-06-11] MEDS: OXcarbazepine 600 MG Tablet PO SCH ×2 (08:50→20:29)
[2018-06-11] MEDS: Lisinopril 20 MG Tablet PO SCH ×2 (09:14→20:29)
[2018-06-11] MEDS: QUEtiapine 100 MG Tablet PO SCH ×2 (09:15→20:29)
--- NOTE | 2018-06-11 14:57 | P.PNIM ---
Subjective Interval history: Follow-up visit history of CVA, HTN. Patient seen and examined today. Reports she is doing well. States she is happy with her BP improving. Denies pain and discomfort. Denies SOB/ dyspnea. Denies chest pain , palpitations, headaches, dizziness. Denies fevers, chills, n/v/d. Denies hematuria, dysuria. Physical Exam Vital signs: Vital Signs 06/10/18 17:50 06/11/18 06:00 Temperature 97.9 F 98.1 F Pulse Rate 108 H 84 Respiratory Rate 20 16 Blood Pressure 150/87 H 129/63 Pulse Oximetry 98 96 Intake & Output 06/10/18 06/11/18 06/11/18 18:59 06:59 18:59 Intake Total 720 / 720 Balance 720 / 720 Weight 63.7 kg Intake: Oral 720 / 720 Narrative: GENERAL: This is a pleasant female, well-developed patient, in no apparent distress. SKIN: Warm and dry. Bilateral knee keloid scars. HEENT: Normocephalic. Pupils equal round and reactive. Nose without bleeding. Airway patent. NECK: Trachea midline. CARDIOVASCULAR: Regular rate and rhythm without murmurs, gallops, or rubs. RESPIRATORY: Clear to auscultation. Breath sounds equal bilaterally. No wheezes , rales, or rhonchi. GASTROINTESTINAL: Abdomen soft, non-tender, nondistended. Bowel Sounds normoactive x4. MUSCULOSKELETAL: Extremities without clubbing, cyanosis, or edema. NEUROLOGICAL: Awake and alert. Slightly slurred speech. Pleasant. RUE limited ROM, + contractures. Results Labs CBC & Chem 7: 06/06/18 13:40 06/06/18 13:40 Assessment and Plan (1) Bipolar disorder: Code(s): F31.9 - Bipolar disorder, unspecified Status: Acute Plan Patient is a 58-year-old Armenian female of [place] descent with past medical history of HTN, CVA in 2007 with right-sided weakness, states she has a history of diabetes but has managed to lost weight and has been off medication, bipolar disorder who initially came into the hospital under [place] act by her neighbor Esther due to her recent argument with medications. Patient was recently admitted and discharged from psychiatric unit about few days back, patient states she does state home one day and got [place] acted. She is now admitted to inpatient psychiatry unit for further evaluation. Consulted for assistance with BP management. Bipolar disorder -Managed by psychiatry team HTN, uncontrolled -Lisinopril 20 mg twice daily -Clonidine PRN -Improved, BP 120s Previous CVA 2007 HLD -Continue aspirin, atorvastatin History of diabetes -Hemoglobin A1c 5.4 -Follow-up in the outpatient, dietary changes and lifestyle to continue DVT Prop ambulatory Full Code Stable from Hospitalist standpoint. We will sign off. Reconsult as needed. Thank you. Discussed Condition With: patient, nursing, Dr. Hayden Discharge Planning: DC disposition by primary team Progress Note: Quality VTE Deep Vein Thrombosis/Pulmonary Embolism Present on Admission: No _ (1) Bipolar disorder Qualifiers: Active/Remission status: Current bipolar episode type: Current episode severity: Most recent bipolar episode type: Psychotic features:
--- NOTE | 2018-06-11 17:11 | P.PNPSY ---
Subjective Remarks: Patient seen for follow-up, chart reviewed. Discussion with nursing staff reported that patient compliant with medications, denies perceptual disturbances. Patient found participating in group activity, calm and cooperative. Patient states that she has been feeling fine, denies racing thoughts, noted to be disorganized at times but mostly able to maintain focus on topic. She reports sleeping well, adequate appetite, tolerating medications , no ADRs. She mentions wanting to get new dogs as pets as she states recalling feeling sad that her previous dog had . She continues to agree to [facility]. Review of Systems All other systems reviewed negative except as stated in HPI Mental Status Examination Appearance: Appropriate Consciousness: Alert Orientation: Person, Place, Date/Time Motor Activity: Abnormal gait Speech: Unremarkable Language: Adequate Fund of Knowledge: Inadequate Attention and Concentration: Adequate Memory: Impaired Mood: Other ("Very good") Affect: Appropriate Thought Process & Associations: Disorganized (At times) Thought Content: Bizarre thinking Hallucination Type: None Delusion Type: None Suicidal Ideation: No Suicidal Plan: No Suicidal Intention: No Homicidal Ideation: No Homicidal Plan: No Homicidal Intention: No Insight: Fair Judgment: Impulsive Assessment and Plan - Assessment (1) Bipolar disorder Code(s): F31.9 - Bipolar disorder, unspecified Status: Acute - Plan Plan: Patient continues to adhere to treatment, maintaining stable mood, continue current treatment. Treatment team continues to search for [facility] for patient to be referred. Continue to monitor mood and behavior. Discharge planning in progress. Justification for Continued Inpatient Stay: At risk for further decompensation at lower level of care.
[2018-06-12] MEDS: Lisinopril 20 MG Tablet PO SCH ×2 (08:41→20:46)
[2018-06-12] MEDS: OXcarbazepine 600 MG Tablet PO SCH ×2 (08:41→20:46)
[2018-06-12] MEDS: QUEtiapine 100 MG Tablet PO SCH ×2 (08:41→20:46)
--- NOTE | 2018-06-12 15:09 | P.PNPSY ---
Subjective Remarks: Patient seen for follow-up, chart reviewed. Discussion with nursing staff reported that patient less engaging today but pleasant and attending groups. Patient was found participate in group activity noted B, cooperative. Patient states she is sleeping well, felt somewhat tired after taking her medications today but noted to be pleasant, adequate appetite and mood has been "good". Patient states she is attending groups and awaiting to go into the assisted living facility and she had been agreeable to this. Patient denies any perceptual service or delusions at this time. Review of Systems All other systems reviewed negative except as stated in HPI Mental Status Examination Appearance: Appropriate Consciousness: Alert Orientation: Person, Place, Date/Time Motor Activity: Abnormal gait Speech: Unremarkable Language: Adequate Fund of Knowledge: Inadequate Attention and Concentration: Adequate Memory: Impaired Mood: Other ("Very good") Affect: Appropriate Thought Process & Associations: Disorganized (Minimal) Thought Content: Bizarre thinking (Lessening) Hallucination Type: None Delusion Type: None Suicidal Ideation: No Suicidal Plan: No Suicidal Intention: No Homicidal Ideation: No Homicidal Plan: No Homicidal Intention: No Insight: Fair Judgment: Impulsive Assessment and Plan - Assessment (1) Bipolar disorder Code(s): F31.9 - Bipolar disorder, unspecified Status: Acute - Plan Plan: Patient continues to have limited insight, minimal disorganization mostly able to engage appropriately with interview and topic. We will continue current treatment. Continue monitor mood and behavior. We will order repeat CMP to monitor for I abnormalities. Continue to monitor mood and behavior. Treatment team continues to search for assisted living facility willing to accept patient upon discharge. Patient high likelihood for relapse due to history of noncompliance and limited insight which patient will require a more supervised setting such as an assisted living facility to provide patient with more stability and structure. Discharge planning in progress. Justification for Continued Inpatient Stay: At risk of further decompensation at lower level care.
[2018-06-12 15:37] LABS: Alanine Aminotransferase 33 U/L (10-53); Anion Gap 9 meq/L (5-15); Aspartate Aminotransferase 23 U/L (15-37); Blood Urea Nitrogen 8 mg/dL (7-18); Calcium 8.9 mg/dL (8.5-10.1); Chloride 97 meq/L (98-107); Glomerular Filtration Rate 85 mL/min (>89); Glucose,Random 108 mg/dL (74-106); Sodium 132 meq/L (136-145)
[2018-06-12 15:39] LABS: Alkaline Phosphatase 107 U/L (45-117); Total Protein 7.4 g/dL (6.4-8.2)
[2018-06-13] MEDS: QUEtiapine 100 MG Tablet PO SCH ×2 (08:10→21:03)
[2018-06-13] MEDS: OXcarbazepine 600 MG Tablet PO SCH ×2 (08:11→21:04)
[2018-06-13] MEDS: Lisinopril 20 MG Tablet PO SCH ×2 (08:11→21:03)
--- NOTE | 2018-06-13 10:30 | P.PNIM ---
Subjective Interval history: Reconsult for hyponatremia. Spoke with nurse who does not report any acute events or concerns. Patient is seen and examined resting in bed comfortably and appears to be in no acute distress. She reports that at home she uses salt and pepper on her foods, however since she has been here she has not been using salt and does not know why. Denies any headaches, dizziness , nausea, vomiting or diarrhea. Does not report any acute concerns or complaints at the moment. Physical Exam Vital signs: Vital Signs 06/12/18 18:08 06/13/18 06:00 Temperature 99.0 F 97.1 F L Pulse Rate 102 H 97 H Respiratory Rate 18 18 Blood Pressure 160/88 H 133/95 H Pulse Oximetry 99 98 Intake & Output 06/12/18 06/13/18 06/13/18 18:59 06:59 18:59 Intake Total 1200 / 1200 Balance 1200 / 1200 Intake: Oral 1200 / 1200 Narrative: GENERAL: This is a pleasant female, well-developed patient, in no apparent distress. CARDIOVASCULAR: Regular rate and rhythm without murmurs, gallops, or rubs. RESPIRATORY: Clear to auscultation. Breath sounds equal bilaterally. No wheezes , rales, or rhonchi. GASTROINTESTINAL: Abdomen soft, non-tender, nondistended. Bowel Sounds normoactive x4. MUSCULOSKELETAL: Extremities without clubbing, cyanosis, or edema. NEUROLOGICAL: Awake and alert, pleasant. Results Labs CBC & Chem 7: 06/06/18 13:40 06/13/18 12:56 Assessment and Plan (1) Bipolar disorder: Code(s): F31.9 - Bipolar disorder, unspecified Status: Acute Plan Patient is a 58-year-old Azerbaijani female of [place] descent with past medical history of HTN, CVA in 2007 with right-sided weakness, states she has a history of diabetes but has managed to lost weight and has been off medication, bipolar disorder who initially came into the hospital under [place] act by her neighbor Esther due to her recent argument with medications. Patient admitted to inpatient psychiatry unit for further evaluation following [place] act. Hospitalist consult requested due to hyponatremia. Hyponatremia, mild -Na 138-->132 -Patient reports she is not been using salt while she has been in the psychiatric department -Hyponatremia is mild and patient is asymptomatic -Recheck sodium level 131, no treatment indication at this time. -Could possibly be contributing factor due to her recently increased lisinopril dose -Continue to monitor while in psych. DVT prophylaxisambulation Discussed Condition With: Patient and nursing staff Progress Note: Quality VTE Deep Vein Thrombosis/Pulmonary Embolism Present on Admission: No _ (1) Bipolar disorder Qualifiers: Active/Remission status: Current bipolar episode type: Current episode severity: Most recent bipolar episode type: Psychotic features:
--- NOTE | 2018-06-13 13:18 | P.PNPSY ---
Subjective Remarks: Patient seen for follow-up, chart reviewed. Discussion with nursing staff reported that patient is reported to nursing that she believes she was angry today. Patient was found in the room noted B, cooperative. Patient reports having slept well last evening which has been "good" denying any perceptual services or delusions. Patient mentions having attempted to call her siblings but was unsuccessful. Patient reports attending groups. Patient continues to be aware that she will be referred to an assisted living facility elevated agreeable to this. Patient also made aware of mild hyponatremia noted by labs at that hospitalist consult was requested to address this. Review of Systems All other systems reviewed negative except as stated in HPI Mental Status Examination Appearance: Appropriate Consciousness: Alert Orientation: Person, Place, Date/Time Motor Activity: Abnormal gait Speech: Unremarkable Language: Adequate Fund of Knowledge: Inadequate Attention and Concentration: Adequate Memory: Impaired Mood: Good Affect: Appropriate Thought Process & Associations: Disorganized (Minimal) Thought Content: Bizarre thinking (Lessening) Hallucination Type: None Delusion Type: None Suicidal Ideation: No Suicidal Plan: No Suicidal Intention: No Homicidal Ideation: No Homicidal Plan: No Homicidal Intention: No Insight: Fair Judgment: Impulsive Assessment and Plan - Assessment (1) Bipolar disorder Code(s): F31.9 - Bipolar disorder, unspecified Status: Acute - Plan Plan: Patient this time continues with appropriate affect, appropriate interactions, no behavior disturbances and compliant with medications. Patient appears to maintain stable mood currently awaiting referral to an assisted living facility and will be discharged upon acceptance to . Patient will continue to require this level of structure and supervision to ensure continued stability in the community. We will continue current treatment. We will continue to await recommendations from primary hospitalist consult regarding hyponatremia. Recent EKG and artery were within normal limits. Discharge planning in progress. Justification for Continued Inpatient Stay: At risk for further decompensation at lower level of care.
[2018-06-13 13:27] LABS: Calcium 8.6 mg/dL (8.5-10.1); Potassium 4.4 meq/L (3.5-5.1)
--- NOTE | 2018-06-14 06:29 | ECG ---
Date Performed: 06/12/2018 Time Performed: 19:05:44 PTAGE: 58 years EKG: Sinus rhythm NORMAL ECG PREVIOUS TRACING : 06/07/2018 11.57 Since the previous tracing, no significant change noted DOCTOR: Jason Chowdary Interpretating Date/Time 06/14/2018 06:27:31
[2018-06-14] MEDS: OXcarbazepine 600 MG Tablet PO SCH ×2 (09:06→20:48)
[2018-06-14] MEDS: Lisinopril 20 MG Tablet PO SCH ×2 (09:07→20:48)
[2018-06-14] MEDS: QUEtiapine 100 MG Tablet PO SCH ×2 (09:07→20:47)
--- NOTE | 2018-06-14 16:14 | P.PNPSY ---
Subjective Remarks: Patient seen for follow-up, chart reviewed. Discussion with nursing staff reported that patient periods of being confused believing she is being discharged today, slept well. Patient was found in the room noted B, cooperative. Patient state that she is feeling "very good" stating good appetite, sleeping well good" bowel movements and no adverse drug reactions. Patient states he had been difficulty reaching her siblings will try again today. Patient continues to have believes that she will be discharged today and was reoriented into the process of making sure she is a substitute assisted living facility first before discharge which she acknowledge. Review of Systems All other systems reviewed negative except as stated in HPI Mental Status Examination Appearance: Appropriate Consciousness: Alert Orientation: Person, Place, Date/Time Motor Activity: Abnormal gait Speech: Unremarkable Language: Adequate Fund of Knowledge: Inadequate Attention and Concentration: Adequate Memory: Impaired Mood: Good Affect: Appropriate Thought Process & Associations: Disorganized (Minimal) Thought Content: Bizarre thinking (Minimal) Hallucination Type: None Delusion Type: None Suicidal Ideation: No Suicidal Plan: No Suicidal Intention: No Homicidal Ideation: No Homicidal Plan: No Homicidal Intention: No Insight: Fair Judgment: Impulsive Assessment and Plan - Assessment (1) Bipolar disorder Code(s): F31.9 - Bipolar disorder, unspecified Status: Acute - Plan Plan: Patient this time continues to maintain stable mood, has episodes of confusion regarding her discharge but no behavioral disturbances, no manic-like behavior noted. Patient is compliant with treatment, we will continue to monitor sodium levels, hospitalist input appreciated. We will continue current treatment. Continue to monitor mood and behavior. Discharge planning in progress. Justification for Continued Inpatient Stay: At risk of further decompensation at lower level care.
[2018-06-15] MEDS: QUEtiapine 100 MG Tablet PO SCH ×2 (08:41→20:19)
[2018-06-15] MEDS: OXcarbazepine 600 MG Tablet PO SCH ×2 (08:42→20:19)
[2018-06-15] MEDS: Lisinopril 20 MG Tablet PO SCH ×2 (08:42→20:19)
[2018-06-15] MEDS: Acetaminophen 325 MG Tablet PO PRN (11:46)
--- NOTE | 2018-06-15 13:11 | XR ---
EXAM DATE: 06/15/2018 1:08 PM EST AGE/SEX: 58 years / Female INDICATIONS: Fell today at the hospital. CLINICAL DATA: This is the patient's initial encounter. Patient reports that signs and symptoms have been present for 1 day and indicates a pain score of 0/10. MEDICAL/SURGICAL HISTORY: None. . left wrist surgery last year. COMPARISON: No prior exams available for comparison. FINDINGS: Previous repair of a distal radial fracture. Alignment is anatomic. There is deformity of the carpal navicular. I cannot confirm an acute fracture. Follow-up would be of benefit. CONCLUSION: Previous fracture distal radius Osteopenia Deformity of the carpal navicular without definite fracture. Follow-up in 7-10 days if remains sympto matic Electronically signed by: Rian Waterman MD Board Certified Radiologist 06/15/2018 1:10 PM EST
--- NOTE | 2018-06-15 13:14 | XR ---
EXAM DATE: 06/15/2018 1:05 PM EST AGE/SEX: 58 years / Female INDICATIONS: Fell today at the hospital. CLINICAL DATA: This is the patient's initial encounter. Patient reports that signs and symptoms have been present for 1 day and indicates a pain score of 9/10. MEDICAL/SURGICAL HISTORY: None. None. COMPARISON: [facility], WRIST COMPLETE LEFT MIN 3V, 06/15/2018. . FINDINGS: No definite fractures, or dislocations are identified. No definite lytic or sclerotic lesi on is seen. Slight osteopenia is seen. CONCLUSION: Slight osteopenia. Electronically signed by: Lauren Liu MD Board Certified Radiologist 06/15/2018 1:13 PM EST
--- NOTE | 2018-06-15 13:15 | XR ---
EXAM DATE: 06/15/2018 1:02 PM EST AGE/SEX: 58 years / Female INDICATIONS: Fell today at the hospital. CLINICAL DATA: This is the patient's initial encounter. Patient reports that signs and symptoms have been present for 1 day and indicates a pain score of 0/10. MEDICAL/SURGICAL HISTORY: None. None. COMPARISON: No prior exams available for comparison. FINDINGS: No definite fractures, or dislocations are identified. No definite lytic or sclerotic lesi on is seen. Slight osteopenia is seen. The joint spaces are well maintained. CONCLUSION: Slight osteopenia. Electronically signed by: Lauren Liu MD Board Certified Radiologist 06/15/2018 1:13 PM EST
--- NOTE | 2018-06-15 15:27 | P.PNIM ---
Subjective Interval history: Follow-up for hyponatremia. Patient is seen and examined ambulating in her room without assistive devices. She reports to me that she fell today while in [employer] landing on her right wrist and hitting her head. Nurse reports patient did fall but no mentions of head injury. Patient complains of left wrist pain, states this was relieved with Tylenol and she is now pain free. Denies fevers, chills, N/V/D, voices no other concern at this moment. Physical Exam Vital signs: Vital Signs 06/14/18 17:47 06/15/18 05:34 06/15/18 09:55 Temperature 98.7 F 98.0 F Pulse Rate 94 H 87 85 Respiratory Rate 16 18 17 Blood Pressure 140/80 160/107 H 127/74 Pulse Oximetry 99 97 06/15/18 11:00 Temperature Pulse Rate Respiratory Rate 17 Blood Pressure Pulse Oximetry Narrative: GENERAL: This is a pleasant female, well-developed patient, in no apparent distress. CARDIOVASCULAR: Regular rate and rhythm without murmurs, gallops, or rubs. RESPIRATORY: Clear to auscultation. Breath sounds equal bilaterally. No wheezes , rales, or rhonchi. GASTROINTESTINAL: Abdomen soft, non-tender, nondistended. Bowel Sounds normoactive x4. MUSCULOSKELETAL: Extremities without clubbing, cyanosis, or edema. Right shoulder and wrist with no deformity, almost full extension of elbow, ROM on shoulder limited. NEUROLOGICAL: Awake and alert, pleasant. Results Labs CBC & Chem 7: 06/06/18 13:40 06/15/18 09:28 Imaging Imaging: Impressions Knee X-Ray 06/15/18 00:00 CONCLUSION: Slight osteopenia. Wrist X-Ray 06/15/18 00:00 CONCLUSION: Previous fracture distal radius Osteopenia Deformity of the carpal navicular without definite fracture. Follow-up in 7-10 days if remains symptomatic Wrist X-Ray 06/15/18 00:00 CONCLUSION: Slight osteopenia. 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 Patient admitted to inpatient psychiatry unit for further evaluation following [place] act. Hospitalist consult requested due to hyponatremia. Hyponatremia, mild -Na 138-->132--131-->132 -Patient reports she is not been using salt while she has been in the psychiatric department -Hyponatremia is mild and patient is asymptomatic -Na levels mildly low but stable, no treatment indicated at this time. Fall -Wrist x-ray with no acute fracture, limited ROM on shoulder, check x-ray - OT consult, ROM, Tylenol for pain. DVT prophylaxisambulation Check shoulder x-ray if negative will sign off. Please reconsult if needed, or call for questions. Progress Note: Quality VTE Deep Vein Thrombosis/Pulmonary Embolism Present on Admission: No _ (1) Bipolar disorder Qualifiers: Active/Remission status: Current bipolar episode type: Current episode severity: Most recent bipolar episode type: Psychotic features:
--- NOTE | 2018-06-15 16:11 | P.PNPSY ---
Subjective Remarks: Patient seen for follow-up, chart reviewed. Discussion with nursing staff reported that patient fell this morning after tripping on her pants, xrays ordered. Patient was found in dayroom, participating in group activity. She states having fallen this morning after tripping on her pants, noted with sore wrists and right knee, xrays negative for acute fractures. She continues to report good mood, denies any perceptual disturbances, no bizarre statements, compliant with treatment. Review of Systems All other systems reviewed negative except as stated in HPI Mental Status Examination Appearance: Appropriate Consciousness: Alert Orientation: Person, Place, Date/Time Motor Activity: Abnormal gait Speech: Unremarkable Language: Adequate Fund of Knowledge: Inadequate Attention and Concentration: Adequate Memory: Impaired Mood: Good Affect: Appropriate Thought Process & Associations: Disorganized (Minimal) Thought Content: Appropriate Hallucination Type: None Delusion Type: None Suicidal Ideation: No Suicidal Plan: No Suicidal Intention: No Homicidal Ideation: No Homicidal Plan: No Homicidal Intention: No Insight: Fair Judgment: Impulsive Assessment and Plan - Assessment (1) Bipolar disorder Code(s): F31.9 - Bipolar disorder, unspecified Status: Acute - Plan Plan: Patient continues with stable mood, continues to await acceptance to [facility]. Imaging with no acute pathology. PT/OT consult requested. Continues with mild hyponatremia, hospitalist input appreciated. Continue current treatment, continue to monitor mood and behavior. Discharge planning in progress. Justification for Continued Inpatient Stay: At risk for further decompensation at lower level of care.
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
[2018-06-16] MEDS: OXcarbazepine 600 MG Tablet PO SCH ×2 (08:29→20:34)
[2018-06-16] MEDS: QUEtiapine 100 MG Tablet PO SCH ×2 (08:29→20:33)
[2018-06-16] MEDS: Lisinopril 20 MG Tablet PO SCH ×2 (08:29→20:34)
--- NOTE | 2018-06-16 13:57 | P.PNPSY ---
Subjective Chief Complaint: Follow-up treatment of paola Remarks: Patient seen for follow-up, chart reviewed, patient discussed with nursing staff ; we reviewed the patient's mood, thoughts, and behaviors from overnight and this morning. Nursing reports the patient slept 7 hours overnight and she is described as calm pleasant but very talkative. Patient did wake this morning and had an increase in her goal-directed activity but then given her morning dose of Seroquel she returned to her bed for a nap. Patient was seen at bedside where she was easy to awaken. She does acknowledge that she feels more sedated and calm after taking her morning dose of Seroquel. She denies any pain or discomfort. She denies any auditory or visual hallucinations. She denies suicidal ideations and she denies paranoia. She expressed satisfaction with her treatment plan and waiting for acceptance to [facility]. Mental Status Examination Appearance: Appropriate Consciousness: Alert Orientation: Person, Place, Date/Time Motor Activity: Abnormal gait Speech: Unremarkable Language: Adequate Fund of Knowledge: Inadequate Attention and Concentration: Adequate Memory: Impaired Mood: Good Affect: Appropriate Thought Process & Associations: Disorganized (Minimal) Thought Content: Appropriate Hallucination Type: None Delusion Type: None Suicidal Ideation: No Suicidal Plan: No Suicidal Intention: No Homicidal Ideation: No Homicidal Plan: No Homicidal Intention: No Insight: Fair Judgment: Impulsive Assessment and Plan - Assessment (1) Bipolar disorder Code(s): F31.9 - Bipolar disorder, unspecified Status: Acute - Plan Plan: June 15, 2018: Patient continues with stable mood, continues to await acceptance to [facility]. Imaging with no acute pathology. PT/OT consult requested. Continues with mild hyponatremia, hospitalist input appreciated. Continue current treatment, continue to monitor mood and behavior. Discharge planning in progress. June 16, 2018: Fair response to treatment, the patient continues to demonstrate some symptoms of paola to include increased goal-directed activity and pressured speech but her behavior and thoughts are more organized and she is cooperative with care. Continue current treatment with medications unchanged. Discharge planning in process. Justification for Continued Inpatient Stay: Patient remains an elevated risk for self-harm by self neglect and will require further inpatient stabilization and preparation of a safe discharge plan. Moving patient to a less restrictive environment at this time may result in decompensation.
[2018-06-17] MEDS: OXcarbazepine 600 MG Tablet PO SCH ×2 (09:30→21:24)
[2018-06-17] MEDS: QUEtiapine 100 MG Tablet PO SCH ×2 (09:30→21:24)
[2018-06-17] MEDS: Lisinopril 20 MG Tablet PO SCH ×2 (09:31→21:24)
--- NOTE | 2018-06-17 14:33 | P.PNPSY ---
Subjective Chief Complaint: Follow-up treatment of paola Remarks: Patient seen for follow-up, chart reviewed, patient discussed with nursing staff ; we reviewed the patient's mood, thoughts, and behaviors from overnight and this morning. Nurse reports the patient slept 6 hours overnight and she is described as calm, pleasant, social, and denies suicidal ideations. Patient was seen interacting appropriately with peers in the day room. She denies any complaints. Mental Status Examination Appearance: Appropriate Consciousness: Alert Orientation: Person, Place, Date/Time Motor Activity: Abnormal gait Speech: Unremarkable Language: Adequate Fund of Knowledge: Inadequate Attention and Concentration: Adequate Memory: Impaired Mood: Good Affect: Appropriate Thought Process & Associations: Intact, Logical, Goal directed Thought Content: Appropriate Hallucination Type: None Delusion Type: None Suicidal Ideation: No Suicidal Plan: No Suicidal Intention: No Homicidal Ideation: No Homicidal Plan: No Homicidal Intention: No Insight: Fair Judgment: Impulsive Assessment and Plan - Assessment (1) Bipolar disorder Code(s): F31.9 - Bipolar disorder, unspecified Status: Acute - Plan Plan: June 17, 2018: Fair response to treatment, the patient continues to demonstrate some symptoms of paola to include increased goal-directed activity and pressured speech but her behavior and thoughts are more organized and she is cooperative with care. Continue current treatment with medications unchanged. Discharge planning in process. Justification for Continued Inpatient Stay: Patient remains an elevated risk for self-harm by self neglect and will require further inpatient stabilization and preparation of a safe discharge plan. Moving patient to a less restrictive environment at this time may result in decompensation.
[2018-06-17 17:51] VITALS: BP 153/87; PULSE 94; RESP 20; TEMP 97.8; O2SAT 97
[2018-06-18] MEDS: Lisinopril 20 MG Tablet PO SCH (09:36)
[2018-06-18] MEDS: OXcarbazepine 600 MG Tablet PO SCH (09:36)
[2018-06-18] MEDS: QUEtiapine 100 MG Tablet PO SCH (09:36)
--- NOTE | 2018-06-18 15:16 | P.DSPSY ---
Psychiatry Discharge Summary Inpatient Psychiatric care?: Yes Advance Directives: No Reason for Unknown:: Due to Patient Condition Mental Health Advance Directive: No Health Care Proxy: No - Admission Admission Date: June 06, 2018 21:54 - Admission Diagnosis (1) Bipolar disorder Code(s): F31.9 - Bipolar disorder, unspecified Brief History: Patient is a 58 y/o [place]e [place] woman, , unemployed on disability income, past psychiatric history of bipolar disorder, multiple psychiatric admissions (recently discharged from this facility several days ago), one prior suicide attempt (2007), with past medical history of CVA 2007 with RT sided residual weakness, brought in under [place] which states that patient had an argument with neighbor or medications and was going to walk to the [facility] which patient was admitted to the inpatient psychiatry unit for further evaluation and management. As per chart, patient denied having any perceptual disturbances, denied having mentioned any suicidal statements in the ED. Patient was found ambulating on the unit, calm and cooperative, and not noted to have pressured speech, noted to have slight disorganization but not grossly disorganized, some tangentiality but able to maintain focus on conversation. Patient was having difficulty giving a linear account of events after her discharge and events that led to her readmission. She mentions having been upset recently because today is the anniversary of her stillborn Evon as well as having found out that her dog had 2 days ago after her sister had spoken to her over the phone. She states that she had gotten into an argument with her neighbor/close friend (Esther) who upon last discharge had agreed to assist patient with medication and management. She states that her friend Esther was trying to have her take medications 3 times a day which as per directions from her last discharge is accurate. She states that she was refusing to take any more medications. She also mentions that after her last discharge she was not able to fill her prescriptions and therefore did not continue to take her psychiatric medications after discharge. Patient states that Esther ()) had called the police because she thought she was manic. Patient denies having had any manic-like behavior after her discharge which she states and describes that when she has been manic in the past she "spends a lot of money", although patient made comment that she was planning to give her landscape worker thousand dollars because he had been very helpful with her dog in the past. It is important to note that patient happens discharge did not continue treatment as stated above that she had not filled her prescriptions. Patient at this time denies any perceptual services denies any SI or HI. Patient also noted to have poor insight into importance of adherence to medications at this time and discussion of having patient referred to an assisted living facility to provide more structure and to maintain mood stability was reviewed which she agreed. Family psychiatric history: mother and grandmother with bipolar disorder, denies any suicides in the family Past psychiatric history: previous psychiatric diagnosis of bipolar disorder, multiple psychiatric admissions (recently discharged from [facility] several days ago), one prior suicide attempt in 2007, has outpatient mental health provider Mr. Cano. Substance use history: ETOH occasionally, usually one drink. Past medical history: CVA in 2007 with residual RT sided weakness Allergies: depakote, methylphenidate, risperidone Social history: , lives alone, unemployed on disability benefits, no legal history Collateral contact: Felicia Menonbutch (sister); Esther Persaud [phone] (close friend) Tobacco Use In Past 30 Days: No How Often Do You Have a Drink Containing Alcohol: Never Hospital Course: Patient is a 58 y/o [place] woman, , unemployed on disability income, past psychiatric history of bipolar disorder, multiple psychiatric admissions (recently discharged from this facility several days ago), one prior suicide attempt (2007), with past medical history of CVA 2007 with RT sided residual weakness, brought in under [place] which states that patient had an argument with neighbor or medications and was going to walk to the [facility] which patient was admitted to the inpatient psychiatry unit for further evaluation and management. Patient was admitted to a locked, inpatient psychiatric unit. Appropriate precautions were in place throughout patient's hospital stay. Patient was seen and examined on the unit by psychiatry. Psychotropic medications were continued and consulted with medical team for continued medical monitoring. Patient during admission had fallen but no acute injuries noted. Patient was also noted with mild hyponatremia that appeared to be stable throughout admission and was followed by medical team. There was no evidence of any suicidality or homicidality on the inpatient unit. Patient's mood improved and stabilized with the benefit of psychopharmacological treatment and had no behavioral disturbance since admission. Patient was noted to have reached stable mood, noted to participate and engage in treatment and interact with staff adequately. Patient noted to be future oriented with plans to continue treatment and outpatient follow-up appointments for continuity of care. Counselor has arranged discharge plan which patient will be discharged to an assisted living facility. On the day of discharge: Patient seen and examined; chart reviewed. Case discussed with nurse and counselor. No behavioral issues overnight. On my examination today, the patient denies any suicidal homicidal ideation, intent or plan on direct questioning and contracts for safety. Patient denies any perceptional disturbances and no delusional material verbalized today. Patient denies any side effects from medication and has understanding of medication regimen and education. No physical complaints. Suicide and violence risk assessment on day of discharge both suggest lower imminent risk, and the patient's level of function is adequate for plan level of outpatient care. Patient has maximized benefit from this inpatient psychiatric hospital stay and will be discharged with discharge plan as arranged by counselor. Patient advised to return to psychiatric emergency room for any concerning psychiatric symptoms. Patient agrees with plan. Discharge medications: - quetiapine 250mg PO BID - quetiapine 200mg PO daily @ 1500hrs - atorvastatin 40mg PO daily - oxcarbazepine 600mg PO BID - lisinopril 20mg PO BID - ASA 81mg PO daily - Discharge Discharge Date: 06/18/18 - Discharge Diagnosis (1) Bipolar disorder Code(s): F31.9 - Bipolar disorder, unspecified Status: Acute Discharge Disposition: Assisted Living Facility - Discharge Instructions Discharge Diet: Heart Healthy Diet Activities You Can Perform: Weight Bearing As Tolerat - Discharge Time > 30 minutes Mental Status Examination Appearance: Appropriate Consciousness: Alert Orientation: Person, Place, Date/Time Motor Activity: Abnormal gait Speech: Unremarkable Language: Adequate Fund of Knowledge: Inadequate Attention and Concentration: Adequate Memory: Impaired Mood: Appropriate Affect: Appropriate Thought Process & Associations: Intact, Logical, Goal directed Thought Content: Appropriate Hallucination Type: None Delusion Type: None Suicidal Ideation: No Suicidal Plan: No Suicidal Intention: No Homicidal Ideation: No Homicidal Plan: No Homicidal Intention: No Insight: Fair Judgment: Impulsive Discharge/Advance Care Plan - Results Vital Signs: Last Vital Signs Temp 97.8 F 06/17/18 17:50 Pulse 94 H 06/17/18 17:50 Resp 20 06/17/18 17:50 BP 153/87 H 06/17/18 17:50 Pulse Ox 97 06/17/18 17:50 Lab Results: Laboratory Results Hemoglobin A1c 5.4 % (4.3-6.0) 06/07/18 08:10 Triglycerides 126 mg/dL (42-150) 06/07/18 08:10 Cholesterol 297 mg/dL (120-200) H 06/07/18 08:10 LDL Cholesterol, Calc 202 mg/dL (0-99) H 06/07/18 08:10 HDL Cholesterol 69.9 mg/dL (40.0-60.0) H 06/07/18 08:10 TSH 0.511 uIU/mL (0.358-3.740) 06/06/18 13:40 Urine Culture Comments Culture not ind 06/06/18 12:55 Summary of Procedures: none Imaging: ITS Impressions Knee X-Ray 06/15/18 00:00 CONCLUSION: Slight osteopenia. Shoulder X-Ray 06/15/18 00:00 CONCLUSION: Chronic changes and no definite fracture for technique. Wrist X-Ray 06/15/18 00:00 CONCLUSION: Slight osteopenia. Pending Results: None - Medications Number of antipsychotic medications at discharge: 1 - Discharge Care Plan Goals to Promote Your Health: * To prevent worsening of your condition and complications * To maintain your health at the optimal level Directions to Meet Your Goals: Take your medications as prescribed Follow your dietary instruction Follow activity as directed Keep your appointments as scheduled Take your immunizations and boosters as scheduled If your symptoms worsen call your PCP, if no PCP go to Urgent Care Center or Emergency Room For 14/11 questions related to your inpatient stay or results of tests pending at discharge, please contact Dr. Luis Siddiqui MD at Smoking is Dangerous to Your Health. Avoid second hand smoking
== END 2018-06-18 13:50 | DRG 885 ==
LOC: NEPD 12:07 → NEDA 21:54 → H260 22:45
PROVIDERS: ADMIT Student in an Organized Health Care Education/Training Program; ATTEND Student in an Organized Health Care Education/Training Program
CPT/HCPCS: 73030; 73110; 73564; 80048; 80053; 80061; 80307; 81001; 83036; 83735; 84295; 84443; 85025; 90791; 93005; 97116; 97161; 99285; Q0163